=== PATIENT | female | born 1970 | race Caucasian/White ===

== ENCOUNTER 2020-06-27 08:05 | Outpatient (CLI) | payer BC, SELFPAY ==
--- NOTE | ~2020-06-27 | MM_ITS ---
EXAMINATION: MM screening emily BI w sharee HISTORY: Screening TECHNIQUE: Craniocaudal and mediolateral oblique 3-D tomosynthesis images were obtained and synthetic 2-D images were generated. CAD analysis was submitted and interpreted. COMPARISON: Comparison to multiple prior studies sequentially, with oldest reviewed study dated 04/2014. BREAST PARENCHYMAL COMPOSITION: The breasts are heterogeneously dense, which may obscure small masses . FINDINGS: There is no evidence of suspicious mass, calcification, or architectural distortion to sugg est malignancy in either breast. There has been no suspicious interval change. IMPRESSION: 1. No mammographic evidence of malignancy. 2. Recommend routine screening mammography in one year. BI-RADS Category 1: Negative Reviewed, dictated and finalized at location A.
== END 2020-06-27 08:06 | disposition home or self-care (01) ==
LOC: ANHIMG 08:09
PROVIDERS: PCP Family Medicine Sports Medicine; Visit Provider Obstetrics & Gynecology
DX: Z12.31 Encounter for screening mammogram for malignant neoplasm of breast (principal)
CPT/HCPCS: 77063; 77067

== ENCOUNTER 2020-06-27 21:21 | Emergency (ER) | payer BC, SELFPAY ==
[2020-06-27 21:27] VITALS: BP 133/88; PULSE 89; RESP 19; TEMP 36.6; O2SAT 98
--- NOTE | 2020-06-27 21:57 | ED.WOUNDLAC ---
HPI - Wound/Laceration General Chief Complaint: Wound/Laceration Stated Complaint: right finger laceration Time Seen by Provider: 06/27/20 21:50 History of Present Illness HPI narrative: She cut her right index finger while trying to cut her dogs collar off. minimal pain. Bleeding controlled. tetanus updated last year. Related Data Allergies Allergy/AdvReac Type Severity Reaction Status Date / Time hydromorphone Allergy Unknown Verified 10/31/17 20:02 Review of Systems Review of Systems: All systems reviewed & are unremarkable except as noted in HPI and below PMFSH Social History Social History Gender identity (if verbalized by the patient): Female Exam Const: General: healthy appearing, no acute distress and alert Orientation/consciousness: patient oriented x3 HENMT: Head: normal to inspection Resp: Effort & Inspection: normal respiratory effort Skin: Other: 3 cm laceration over DIP of right index finger Neuro: General: patient oriented x3 and moves all extremities Speech: normal speech Extrem: Other: Full ROM Course Vital Signs Vital signs: Vital Signs Temperature 36.6 C 06/27/20 21:27 Pulse Rate 89 06/27/20 21:27 Respiratory Rate 19 06/27/20 21:27 Blood Pressure 133/88 06/27/20 21:27 Pulse Oximetry 98 06/27/20 21:27 Temperature 36.3 C L 06/27/20 22:39 Pulse Rate 80 06/27/20 22:39 Respiratory Rate 19 06/27/20 22:39 Blood Pressure 131/79 06/27/20 22:39 Pulse Oximetry 100 06/27/20 22:39 Procedures Laceration Laceration 1: Site: hand Side (If applicable): right Size (cm): 3 Description: linear Depth: simple, single layer Local Anesthetic: lidocaine 1% Amount of anesthesia used (mL): 3 ====== Skin Level ====== Skin layer closed with: nylon Size (cm): 5-0 Number of sutures: 5 Technique: simple, interrupted ====== Subcutaneous Layer ====== ====== Muscle Layer ====== ====== Tendon Layer ====== Discharge Plan Discharge Clinical Impression: Laceration of index finger of right hand without complication Patient Disposition: Home, Self-Care Condition: Stable Instructions: Laceration (ED) Additional Instructions: Follow-up for suture removal in 10-14 days Follow-up/Referrals: Jasson,Wang Biswas MD [Primary Care Provider] - Discharge Date/Time: 06/27/20 22:45
[2020-06-27 22:39] VITALS: BP 131/79; PULSE 80; RESP 19; TEMP 36.3; O2SAT 100
== END 2020-06-27 22:45 | disposition home or self-care (01) ==
PROVIDERS: Emergency Provider Emergency Medicine; PCP Family Medicine Sports Medicine
DX: S61.210A Laceration without foreign body of right index finger without damage to nail, initial encounter (principal); W26.9XXA Contact with unspecified sharp object(s), initial encounter
CPT/HCPCS: 12002; 99282

== ENCOUNTER 2021-07-02 16:17 | Outpatient (CLI) | payer BC, SELFPAY ==
--- NOTE | ~2021-07-02 | MM_ITS ---
EXAMINATION: MM screening emily BI w sharee HISTORY: Screening TECHNIQUE: Craniocaudal and mediolateral oblique 3-D tomosynthesis images were obtained and synthetic 2-D images were generated. CAD analysis was submitted and interpreted. COMPARISON: Comparison to multiple prior studies sequentially, with oldest reviewed study dated 04/2014. BREAST PARENCHYMAL COMPOSITION: The breasts are heterogenously dense, which may obscure small masses FINDINGS: There is no evidence of suspicious mass, calcification, or architectural distortion to sugg est malignancy in either breast. There has been no suspicious interval change. IMPRESSION: 1. No mammographic evidence of malignancy. 2. Recommend routine screening mammography in one year. BI-RADS Category 1: Negative Reviewed, dictated and finalized at location A.
== END 2021-07-02 16:18 | disposition home or self-care (01) ==
LOC: ANHIMG 16:19
PROVIDERS: PCP Family Medicine Sports Medicine; Visit Provider Obstetrics & Gynecology
DX: Z12.31 Encounter for screening mammogram for malignant neoplasm of breast (principal)
CPT/HCPCS: 77063; 77067

== ENCOUNTER 2024-04-29 07:58 | Outpatient (CLI) | payer BC, SELFPAY ==
--- NOTE | ~2024-04-29 | MM_ITS ---
EXAMINATION: MM screening emily BI w sharee HISTORY: Screening TECHNIQUE: Craniocaudal and mediolateral oblique 3-D tomosynthesis images were obtained and synthetic 2-D images were generated. CAD analysis was submitted and interpreted. COMPARISON: Comparison to multiple prior studies sequentially, with oldest reviewed study dated 04/2014. BREAST PARENCHYMAL COMPOSITION: Dense: The breasts are heterogeneously dense, which may obscure small masses FINDINGS: There is no evidence of suspicious mass, calcification, or architectural distortion to sugg est malignancy in either breast. There has been no suspicious interval change. IMPRESSION: 1. No mammographic evidence of malignancy. 2. Recommend routine screening mammography in one year. BI-RADS Category 1: Negative Reviewed, dictated and finalized at location B.
== END 2024-04-29 07:59 | disposition home or self-care (01) ==
LOC: ANHIMG 08:01
PROVIDERS: Visit Provider Obstetrics & Gynecology
DX: Z12.31 Encounter for screening mammogram for malignant neoplasm of breast (principal)
CPT/HCPCS: 77063; 77067

== ENCOUNTER 2025-08-21 08:09 | Outpatient (CLI) | payer BC, SELFPAY ==
--- NOTE | ~2025-08-21 | MM_ITS ---
EXAMINATION: MM screening emily BI w sharee HISTORY: Screening TECHNIQUE: Craniocaudal and mediolateral oblique 3-D tomosynthesis images were obtained and synthetic 2-D images were generated. CAD analysis was submitted and interpreted. COMPARISON: Comparison to multiple prior studies sequentially, with oldest reviewed study dated 06/22/2019. BREAST PARENCHYMAL COMPOSITION: Dense: The breasts are heterogeneously dense, which may obscure small masses FINDINGS: There is a new focal asymmetry superiorly in the left breast on MLO view, middle third. The right breast is stable without evidence for malignancy. IMPRESSION: 1. New focal left breast asymmetry superiorly on MLO view. 2. Additional mammographic views and possible breast ultrasound are recommended. BI-RADS Category 0: Incomplete: Needs additional imaging evaluation. Reviewed, dictated and finalized at location B. IMPRESSION: 1. New focal left breast asymmetry superiorly on MLO view. 2. Additional mammographic views and possible breast ultrasound are recommended . BI-RADS Category 0: Incomplete: Needs additional imaging evaluation.
--- OUTSIDE RECORDS SUMMARY | 2025-08-21 08:18 | XMS_ITS | Encounter Summary ---
Author Organization [facility] Healthcare Address [address] [place] [address] Care Team Providers Care Electrical Supervisor Name Role Phone Wang Spaulding MD Primary Care Provider + Maile Campuzano Unavailable [phone] Maile Campuzano Primary Care Provider [phone] Delta Mccoy Primary Care Provider [phone] Encounter Details Date Type Department Care Team (Late st Contact Info) Description 02/07/2021 Telephone [facility] Radiology [address] [place] [address] Peter Gutiérrez MD [address] [place], [place] [id number] Social History Tobacco Use Types Packs/Day Years Used Date Smoking Tobacco: Never Comments Unknown Sex and Gender Information Value Date Recorded Sex Assigned at Not on file 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 Gender Identity Not on file Sexual Orientation Not on file documented as of this encounter Plan of Treatment Not on file documented as of this encounter Visit Diagnoses Not on filedocumented in this encounter Care Teams Electrical Supervisor Relationship Specialty [place] [address] [place] [address] PCP - General Family Medicine 12/22/18 01/08/25 [place] [address] [address] PCP - General Physician Sociocultural Anthropology Professor 01/09/25 01/09/25 [place] [address] [place] [address] PCP - General Product Control And Logistics Analyst 01/13/25 [place] [address] [address] Physician Sociocultural Anthropology Professor Physician Sociocultural Anthropology Professor 01/03/25 documented as of this encounter
--- OUTSIDE RECORDS SUMMARY | 2025-08-21 08:19 | XMS_ITS | Clinical Summary ---
Author Organization [facility] Register My Info Address [address] [place] [address] Care Team Providers Care Internal Sales Engineer Name Role Phone Wang Spaulding MD Primary Care Provider [phone] Source Comments [facility] My [facility],non-owned Affiliates and Associated Physician Practices is amultiple site organization consisting of ambulatory clinics and hospital sitesin [place], [place], [place] and [place]. This disclosure is being madepursuant to the Care Everywhere program and may not contain all information available regarding this patient. Last updated 18.[facility] My Info Allergies No known active allergies Medications * Be aware that medications may not be up to date on this document. Alwaysverify current medications with the patient. valACYclovir (VALTREX) 500 MG tablet Take 500 mg by mouth as needed. Active FLUoxetine (PROZAC) 20 MG capsule TK 1 C PO QD 2 06/12/2016 Active MINASTRIN 24 FE 1-20 MG-MCG(24) tablet TK 1 T PO QD 3 06/12/2016 Active Active Problems No known active problems Social History Tobacco Use Types Packs/Day Years Used Date Smoking Tobacco: Never Smokeless Tobacco: Never Tobacco Cessation:Counseling Given: Yes Alcohol Use Standard Drinks/Week Comments No 0 (1 standard drink = 0.6 oz pur e alcohol) Comments No Sex and Gender Information Value Date Recorded Sex Assigned at Not on file Legal Sex Female 3:50 PM CDT Gender Identity Not on file Sexual Orientation Not on file Last Filed Vital Signs Vital Sign Reading Time Taken Comments Blood Pressure 130/82 06/20/2016 11:00 AM CDT Pulse 71 06/20/2016 11:00 AM CDT Temperature 36.6 C (97.9 F) 02/14/2015 10:35 AM CDT Respiratory Rate 18 02/14/2015 10:35 AM CDT Oxygen Saturation 100% 02/14/2015 10:35 AM CDT Inhaled Oxygen Concentration - - Weight 67.6 kg (149 lb) 06/20/2016 11:00 AM CDT Height 161.3 cm (5' 3.5) 06/20/2016 11:00 AM CD T Body Mass Index 25.98 06/20/2016 11:00 AM CDT Plan of Treatment Health Maintenance Due Date Last Done Comments COLOGUARD (AGES 45-75) - COL ON CA SCREENING 1971 COLON MONITORING 1971 COLONOSCOPY - COLON CA SCREENING 1971 CT COLONOGRAPHY - COLON CA SCREENING 1971 Colorectal Cancer Screening 1971 FIT - COLON CA SCREENING 1971 FLEX SIG - COLON CA SCREENING 1971 LIPID TESTING 1971 MAMMOGRAM 1971 HIV SCREENING 1986 HEPATITIS C SCREENING 08/10/1989 DTAP/TDAP/TD VACCINES (1 - Tdap) 1990 HEPATITIS B VACCINE (1 of 3 - 19+ 3-dose series) 1990 PAP SMEAR 1992 PNEUMOCOCCAL VACCINE 50+ (1 of 1 - PCV) 2021 ZOSTER VACCINE (1 of 2) 2021 DEPRESSION SCREENING 11/23/2024 COVID-19 VACCINE (1 - 2023-2 5 season) 2025 INFLUENZA VACCINE (#1) 2025 HIB VACCINE Aged Out No longer eligi ble based on patient's age to complete this topic HPV VACCINE Aged Out No longer eligi ble based on patient's age to complete this topic MENINGOCOCCAL (Group B) VACC INE SHARED DECISION-MAKING Aged Out No longer eligibl e based on patient's age to complete this topic MENINGOCOCCAL GROUPS A/C/Y/W VACCINE Aged Out No longer eligible b ased on patient's age to complete this topic Insurance [employer] Advance Directives * Full Code (Latest Code Status on File) Date Activated Date Inactivated Comments 07/04/2014 1:20 PM 07/05/2014 1:29 PM Care Teams Internal Sales Engineer Relationship Specialty Start Date End Date Wang Spaulding MD [address] [place] [id number] PCP - General Family Medicine 05/15/14
--- OUTSIDE RECORDS SUMMARY | 2025-08-21 08:19 | XMS_ITS | Clinical Summary ---
Author Organization [facility] Address [address] [place] [id number] Care Team Providers Care Grout Machine Operator Name Role Phone Maile Campuzano Unavailable [phone] Delta Mccoy Primary Care Provider [phone] Allergies Active Allergy Reactions Criticality Noted Date Comments Butorphanol Meperidine Medications cetirizine (ZyrTEC) 10 mg tablet Take 1 tablet (10 mg total) by mouth daily Active estradioL (ESTRACE) 2 mg tablet Take 1 tablet (2 mg total) by mouth daily Active FLUoxetine (PROzac) 40 mg capsule Take 1 capsule (40 mg total) by mouth daily Active L. acidophilus/Bifid. animalis 32 billion cell capsule Take 1 capsule by mouth daily Active levonorgestreL (LILETTA) 20.4 mcg/24 hr (8 yrs) 52 mg IUD by intrauterine route 04/28/20 17 Active ondansetron ODT (ZOFRAN-ODT) 4 mg disintegrating tablet Take 1 tablet (4 mg total) by mouth every 8 (eight) hours as needed 02/01/20 24 Active Wegovy 1.7 mg/0.75 mL auto-injector INJECT 1.7 MG UNDER THE SKIN ONCE WEEKLY Active tiZANidine (ZANAFLEX) 4 mg tabletIndications: Abnormal MRI Take 1 tablet (4 mg total) by mouth every 6 (six) hours as needed for muscle spasms Take when your neck and back of head pain starts to get triggered for your tension headaches 30 tablet 5 05/25/20 25 026 Active rizatriptan (MAXALT) 10 mg tabletIndications: Migraine Take 1 tablet (10 mg total) by mouth once as needed for migraine May repeat in 2 hours if unresolved. Do not exceed 30 mg in 24 hours. 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 Encounters Date Type Department Care Team Description 06/29/2025 6:28 PM CDT - 06/29/2025 11:59 PM CDT Hospital Encounter [facility] [address] [place] [address] Enrrique Ying MD Abnormal MRI Discharge Disposition: Discharge to home or self care 05/25/2025 9:30 AM CDT Office Visit [facility] Medicine Multiple Sclerosis [address] [facility] Advanced Medicine [address]th [place] [address] Enrrique Ying MD Abnormal MRI (Primary Dx); Chronic tension-type headache, intractable; Migraine without aura and without status migrainosus, not intractable; Vertigo due to brain injury from Last 3 Months Medical History Medical History Date Comments Depression Low back pain Social History Tobacco Use Types Packs/Day Years Used Date Smoking Tobacco: Never Tobacco Cessation:Counseling Given: Not Answered Comments Unknown Sex and Gender Information Value Date Recorded Sex Assigned at Not on file 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 Gender Identity Not on file Sexual Orientation Not on file Obstetrics History Last Filed Vital Signs Vital Sign Reading Time Taken Comments Blood Pressure 124/66 05/25/2025 9:17 AM CDT Pulse 84 05/25/2025 9:17 AM CDT Temperature 36.9 C (98.5 F) 05/25/2025 9:17 AM CDT Respiratory Rate - - Oxygen Saturation - - Inhaled Oxygen Concentration - - Weight 77.7 kg (171 lb 6.4 oz) 05/25/2025 9:17 A M CDT Height 160 cm (5' 3) 05/25/2025 9:17 AM CDT Body Mass Index 30.36 05/25/2025 9:17 AM CDT Plan of Treatment Health Maintenance Due Date Last Done Comments Breast Cancer Screening-Mammogram 1971 Cervical Cancer Screening 1971 Colon Cancer Screening-Colonoscopy 1971 Depression Screening 1971 Hepatitis C Screening 1971 Hepatitis B Screening 1989 Regular Well Visit/Exam 18-64 1989 Zoster Vaccine (1 of 2) 2021 Covid-19 Vaccine (3 - 2024- season) 2025 08/18/2021, 07/28/2021 Influenza Vaccine (#1) 2025 , 09/26/2020, 10/10/2019, Additional history exists DTaP/Tdap/Td Vaccine (2 - Td or Tdap) 03/13/2030 03/13/2020 Pneumococcal vaccine <65 Aged Out No longer eligible based on patient's age to complete this topic Procedures Procedure Name Priority Date/Time Associated Diagnosis Comments MRI THORACIC SPINE W WO CONTRAST Schedule Routine, Read Routine (OP Routine) 06/29/2025 8:04 PM CDT Abnormal MRI MRI CERVICAL SPINE W WO CONTRAST Schedule Routine, Read Routine (OP Routine) 06/29/2025 8:04 PM CDT Abnormal MRI from Last 3 Months Results * MRI Thoracic Spine W WO Contrast (06/29/2025 8:04 PM CDT) Anatomical Region Laterality Modality Spine N/A Magnetic Resonan ce 06/30/2025 10:2 2 AM CDT Impressions 06/30/2025 10:22 AM CDT 1. Normal thoracic spinal cord without definite intramedullary signal abnormality or abnormal enhancement. 2. Mild degenerative changes of the thoracic spine as described above. Electronically signed by: Honorio Kirk MD Narrative 06/30/2025 10:22 AM CDT EXAMINATION: Magnetic resonance imaging (MRI) of the thoracic spine without and with contrast HISTORY: MS TECHNIQUE: Multiplanar multi-weighted MRI of the thoracic was performed without and with intravenous contrast using the standard protocol. Contrast information: 14 mL Gadoterate Meglumine IV COMPARISON: None Available. FINDINGS: The alignment of the thoracic spine is normal. T11-T12 anterior disc bulge with anterior endplate osteophytes and reactive bone marrow signal changes within the anterior inferior aspect of T11 and superior anterior aspect of the T12 vertebral bodies. Minimal posterior disc bulge. Otherwise, no significant posterior disc bulge, disc herniation, central spinal or neural foraminal stenosis within the thoracic spine. There are no compression fractures. The spinal cord demonstrates normal signal intensity on all sequences. Right T9, left T10 small perineural cysts. Limited views of the chest and abdomen show no soft tissue abnormality. The aorta is normal. There is no abnormal contrast enhancement. Procedure Note Honorio Kirk MD - 06/30/2025 EXAMINATION: Magnetic resonance imaging (MRI) of the thoracic spine without and with contrast HISTORY: MS TECHNIQUE: Multiplanar multi-weighted MRI of the thoracic was performed without and with intravenous contrast using the standard protocol. Contrast information: 14 mL Gadoterate Meglumine IV COMPARISON: None Available. FINDINGS: The alignment of the thoracic spine is normal. T11-T12 anterior disc bulge with anterior endplate osteophytes and reactive bone marrow signal changes within the anterior inferior aspect of T11 and superior anterior aspect of the T12 vertebral bodies. Minimal posterior disc bulge. Otherwise, no significant posterior disc bulge, disc herniation, central spinal or neural foraminal stenosis within the thoracic spine. There are no compression fractures. The spinal cord demonstrates normal signal intensity on all sequences. Right T9, left T10 small perineural cysts. Limited views of the chest and abdomen show no soft tissue abnormality. The aorta is normal. There is no abnormal contrast enhancement. IMPRESSION: 1. Normal thoracic spinal cord without definite intramedullary signal abnormality or abnormal enhancement. 2. Mild degenerative changes of the thoracic spine as described above. Electronically signed by: Honorio Kirk MD us Enrrique Ying MD IM MRI PROCEDURES Final R esult * MRI Cervical Spine W WO Contrast (06/29/2025 8:04 PM CDT) Anatomical Region Laterality Modality Spine N/A Magnetic Resonan ce 06/30/2025 10:1 1 AM CDT Impressions 06/30/2025 10:11 AM CDT 1. No definite intramedullary signal abnormality within the cervical spinal cord or abnormal enhancement. 2. Multilevel degenerative changes of the cervical spine as described above. C5-C6 central disc extrusion. No high-grade central spinal stenosis or severe neural foraminal stenosis within the cervical spine. Electronically signed by: Honorio Kirk MD Narrative 06/30/2025 10:11 AM CDT EXAMINATION: Magnetic resonance imaging (MRI) of the cervical spine without and with contrast HISTORY: Multiple sclerosis TECHNIQUE: Multiplanar multi-weighted MRI of the cervical spine was performed without and with intravenous contrast using the standard protocol. Contrast information: Routine mL Gadoterate Meglumine IV COMPARISON: None Available. FINDINGS: Normal segmentation with loss of normal lordosis. Minimal anterolisthesis of C3 on C4 vertebra. Vertebral bodies demonstrate normal signal intensity on all sequences. No acute fracture is identified. The craniocervical junction is normal. The visualized portions of the skull base and the posterior fossa are normal. The spinal cord demonstrates normal signal intensity on all sequences. Mild posterior disc bulges at C2-C3 through C6-C7 levels. Small central disc extrusion is present at C5-C6 level. There are no annular fissures identified. No soft tissue abnormality is identified. Dominant right vertebral artery with a hypoplastic left vertebral artery. There is no abnormal contrast enhancement. No high-grade central spinal stenosis or severe neural foraminal stenosis. Procedure Note Honorio Kirk MD - 06/30/2025 EXAMINATION: Magnetic resonance imaging (MRI) of the cervical spine without and with contrast HISTORY: Multiple sclerosis TECHNIQUE: Multiplanar multi-weighted MRI of the cervical spine was performed without and with intravenous contrast using the standard protocol. Contrast information: Routine mL Gadoterate Meglumine IV COMPARISON: None Available. FINDINGS: Normal segmentation with loss of normal lordosis. Minimal anterolisthesis of C3 on C4 vertebra. Vertebral bodies demonstrate normal signal intensity on all sequences. No acute fracture is identified. The craniocervical junction is normal. The visualized portions of the skull base and the posterior fossa are normal. The spinal cord demonstrates normal signal intensity on all sequences. Mild posterior disc bulges at C2-C3 through C6-C7 levels. Small central disc extrusion is present at C5-C6 level. There are no annular fissures identified. No soft tissue abnormality is identified. Dominant right vertebral artery with a hypoplastic left vertebral artery. There is no abnormal contrast enhancement. No high-grade central spinal stenosis or severe neural foraminal stenosis. IMPRESSION: 1. No definite intramedullary signal abnormality within the cervical spinal cord or abnormal enhancement. 2. Multilevel degenerative changes of the cervical spine as described above. C5-C6 central disc extrusion. No high-grade central spinal stenosis or severe neural foraminal stenosis within the cervical spine. Electronically signed by: Honorio Kirk MD Enrrique Ying MD IMG MRI PROCEDURES Final R esult from Last 3 Months Insurance [employer] [place] [employer] [place] [facility] Care Teams Grout Machine Operator Relationship Specialty [place] [address] [place] [address] PCP - General Divorce Mediator 01/13/25 [place] [address] [address] [address] Physician Marketing Development Representative Physician Marketing Development Representative 01/03/25
== END 2025-08-21 08:10 | disposition home or self-care (01) ==
PROVIDERS: Visit Provider Obstetrics & Gynecology
DX: Z12.31 Encounter for screening mammogram for malignant neoplasm of breast (principal); R92.8 Other abnormal and inconclusive findings on diagnostic imaging of breast
CPT/HCPCS: 77063; 77067

== ENCOUNTER 2025-11-03 12:56 | Outpatient (CLI) | payer BC, SELFPAY ==
--- NOTE | ~2025-11-03 | MM_ITS ---
EXAMINATION: MM diagnostic emily LT w sharee HISTORY: Additional imaging TECHNIQUE: Craniocaudal and mediolateral oblique 3-D tomosynthesis images were obtained and synthetic 2-D images were generated. CAD analysis was submitted and interpreted. COMPARISON: August 21, , and 2019. BREAST PARENCHYMAL COMPOSITION: Dense: The breasts are heterogeneously dense FINDINGS: On the additional mammographic views, the focal asymmetry questioned is seen to be unchanged over multiple years. This is considered benign. No suspicious masses are seen. There are no suspicious calcifications. No unexplained architectural distortion is seen. There are no skin or nipple abnormalities identified. There is no adenopathy seen on the images submitted. IMPRESSION: No mammographic evidence to suggest malignancy is seen. The patient may return to screening mammography as per ACR guidelines. BI-RADS 1 - Negative. Reviewed, dictated and finalized at location C. [employer]
== END 2025-11-03 12:57 | disposition home or self-care (01) ==
LOC: ANHFOHIMG 12:58
PROVIDERS: Visit Provider Obstetrics & Gynecology
DX: R92.8 Other abnormal and inconclusive findings on diagnostic imaging of breast (principal)
CPT/HCPCS: 77061; 77065; G0279